=== PATIENT | male | born 1985 | race Two or more races ===

== ENCOUNTER 2020-01-25 21:54 | Emergency (ER) | payer SELFPAY ==
[~2020-01-25] VITALS: Ht 177.8 cm; Wt 80.0 kg
[2020-01-25] MEDS ORDERED: BACITRACIN ZINC OINT UDPKT TOP ONE (23:45)
[2020-01-26 02:05] LABS: BASOPHILS % 0.6 % (0.0-2.0); EOSINOPHILS % 0.5 % (0.0-5.0); HEMATOCRIT. 48.2 % (42.0-52.0); HEMOGLOBIN. 16.2 g/dL (14.0-18.0); LYMPHOCYTES % 20.1 % (20.0-50.0); MEAN CORPUSCULAR HEMOGLOBIN 30.5 pg (28.0-32.0); MEAN CORPUSCULAR VOLUME 90.7 fL (80.0-94.0); MEAN PLATELET VOLUME 7.6 fl (7.4-10.4); MONOCYTES % 8.6 % (2.0-8.0); NEUTROPHILS % 70.2 % (40.0-76.0); PLATELET 322 x1000/uL (130-400); RED BLOOD CELL COUNT 5.31 mill/uL (4.7-6.1); RED CELL DISTRIBUTION WIDTH 13.6 % (11.6-14.6)
[2020-01-26 02:10] LABS: CHLORIDE 103 mEq/L (98-107)
[2020-01-26 02:12] VITALS: BP 146/65
[2020-01-26 02:14] LABS: ETHANOL BLOOD < 10 mg/dL
== END 2020-01-26 02:13 | disposition home or self-care (01) ==
LOC: ER 21:54
DX: T14.91XA Suicide attempt, initial encounter (principal); S50.812A Abrasion of left forearm, initial encounter; X83.8XXA Intentional self-harm by other specified means, initial encounter; Y93.89 Activity, other specified; Y92.9 Unspecified place or not applicable; Z88.0 Allergy status to penicillin
CPT/HCPCS: 36415; 80053; 80320; 85025; 93005; 99284; G0480

== ENCOUNTER 2022-12-14 19:38 | Emergency (ER) | payer MEDICAID ==
[~2022-12-14] VITALS: Ht 167.6 cm; Wt 77.2 kg
[2022-12-14 19:42] VITALS: PULSE 71
[2022-12-14 19:51] VITALS: BP 110/78; RESP 18; TEMP 98.6; O2SAT 100
[2022-12-14] MEDS ORDERED: LIDOCAINE HCL/PF 1% 10 MG/ML 5ML VIAL INFIL ONE (21:00)
[2022-12-14] MEDS ORDERED: BACITRACIN ZINC OINT UDPKT TOP ONE (21:00)
[2022-12-14] MEDS ORDERED: TETANUS, DIPHTHERIA, PERTUSSIS VAC/PF 0.5ML (>10YR OLD) IM ONE ×2 (21:00→23:30)
[2022-12-14] MEDS ORDERED: BO1 TP (23:19)
== END 2022-12-14 23:42 | disposition home or self-care (01) ==
LOC: ER 19:38
DX: S01.111A Laceration without foreign body of right eyelid and periocular area, initial encounter (principal); Z88.0 Allergy status to penicillin; X58.XXXA Exposure to other specified factors, initial encounter; Y93.89 Activity, other specified; Y92.89 Other specified places as the place of occurrence of the external cause; Y99.8 Other external cause status
CPT/HCPCS: 99282; 12013; J3490; 12052; 99283

== ENCOUNTER 2023-01-27 19:02 | Emergency (ER) | payer MEDICAID ==
[~2023-01-27] VITALS: Ht 175.3 cm; Wt 65.0 kg
[~2023-01-27 19:02] MED LIST: BO1 TP
[2023-01-27 19:11] VITALS: BP 109/87; PULSE 86; RESP 20; TEMP 98.2; O2SAT 100
[2023-01-27 20:03] LABS: CHLORIDE 102 mEq/L (98-107); INDEX HEMOLYSI 1 (1-3); INDEX ICTERIC 1 (1-4); INDEX LIPEMIC 1 (1-3); POTASSIUM 3.4 mEq/L (3.5-5.1); SODIUM 136 mEq/L (136-145)
[2023-01-27 20:04] LABS: BASOPHILS % 0.8 % (0.0-2.0); EOSINOPHILS % 0.9 % (0.0-5.0); HEMATOCRIT. 43.8 % (42.0-52.0); HEMOGLOBIN. 14.9 g/dL (14.0-18.0); LYMPHOCYTES % 22.9 % (20.0-50.0); MEAN CORPUSCULAR HEMOGLOBIN 30.2 pg (28.0-32.0); MEAN CORPUSCULAR HGB CONC 34.1 g/dL (31.0-37.0); MEAN CORPUSCULAR VOLUME 88.6 fL (80.0-94.0); MEAN PLATELET VOLUME 7.5 fl (7.4-10.4); MONOCYTES % 10.2 % (2.0-8.0); NEUTROPHILS % 65.2 % (40.0-76.0); PLATELET 355 x1000/uL (130-400); RED BLOOD CELL COUNT 4.94 mill/uL (4.7-6.1)
[2023-01-27 20:05] LABS: INR 1.1; PROTHROMBIN TIME 11.4 sec (9.6-11.0)
[2023-01-27 20:13] LABS: ALANINE AMINOTRANSFERASE 22 IU/L (13-61); ASPARTATE AMINOTRANSFERASE 21 IU/L (15-37); BILIRUBIN TOTAL 1.1 mg/dL (0.1-1.0); CALCIUM 8.7 mg/dL (8.5-10.1); CARBON DIOXIDE 25 mEq/L (21-32); CREATININE 1.2 mg/dL (0.6-1.3); GLUCOSE 108 mg/dL (70-105); NT PRO B-TYPE NATRIURETIC PEP 9 pg/mL (5-125); PROTEIN TOTAL 8.1 g/dL (6.0-8.3); TROPONIN I HIGH SENSITIVITY 8 ng/L (<78); UREA NITROGEN BLOOD 17 mg/dL (7-21)
[2023-01-27] MEDS ORDERED: IBUP-2029 MT (20:32)
== END 2023-01-27 20:47 | disposition home or self-care (01) ==
LOC: ER 19:02
DX: R09.1 Pleurisy (principal); R07.89 Other chest pain; R05.9 Cough, unspecified; R09.81 Nasal congestion
CPT/HCPCS: 36415; 71045; 80053; 83880; 84484; 85025; 99284